=== PATIENT | female | born 1965 | race Hispanic/Latino ===

== ENCOUNTER 2019-02-22 16:23 | Observation (INO) | payer BC, OTHER ==
[~2019-02-22 16:23] MED LIST: ISOVUE-370 76%-LOCM 1 ML ONE
[2019-02-22 16:53] LABS: #Basophils 0.1 thou/uL (0.0-0.2); #Eosinphils 0.2 thou/uL (0.0-0.7); #Monocytes 1.1 thou/uL (0.11-0.59); %Basophils 0.3 % (0.0-1.0); %Eosinophils 1.3 % (0.0-10.0); %Lymphocytes 11.3 % (21.0-51.0); %Monocytes 6.2 % (0.0-10.0); %Neutrophils 80.8 % (42.0-75.0); Hemoglobin 13.6 g/dL (12.0-16.0); Mean Corpuscular HGB CONC 35.1 g/dL (32.0-36.0); Mean Corpuscular Hemoglobin 32.2 pg (27.0-31.0); Mean Corpuscular Volume 91.7 fL (78.0-98.0); Platelet Count 302 thou/uL (130-400); RBC Distribution Width 12.7 % (11.5-14.5); Red Blood Cell (RBC) Count 4.23 mill/uL (4.20-5.40); White Blood Cell (WBC) Count 17.3 thou/uL (4.8-10.8)
--- NOTE | 2019-02-22 17:03 | RAD ---
AP CHEST: 02/22/19 HISTORY: Chest pain. Lung abdalla are clear. No infiltrate or vascular congestion. Heart size is normal. IMPRESSION: No acute process. POS: TPC
[2019-02-22] MEDS ORDERED: Nitroglycerin 2% Ointment 1 INCH/1 GM Packet ONE (17:17)
[2019-02-22 17:19] LABS: ALT (SGPT) 34 U/L (8-55); AST (SGOT) 26 U/L (5-34); Alkaline Phosphatase 102 U/L (40-110); Anion Gap 12 mmol/L (10-20); BUN (Urea Nitrogen) 10 mg/dL (9.8-20.1); Bilirubin, Total 0.3 mg/dL (0.2-1.2); CK (CPK) 49 U/L (29-168); Calc. Creatinine Clearance 0 mL/min (70-130); Calcium 9.6 mg/dL (7.8-10.44); Carbon Dioxide 28 mmol/L (22-29); Chloride 102 mmol/L (98-107); Estimated GFR-MDRD 87; Globulin 2.3 g/dL (2.4-3.5); Glucose 120 mg/dL (70-105); Lipase 16 U/L (8-78); Potassium 3.3 mmol/L (3.5-5.1); Protein, Total 6.3 g/dL (6.0-8.3); Sodium 139 mmol/L (136-145)
[2019-02-22 17:45] LABS: Bilirubin Negative (Negative); Blood, Urine Negative (Negative); Clarity Clear (Clear); Glucose, Urine (Dipstick) Normal (Negative); Leukocyte Negative Leu/uL (Negative); Nitrite Negative (Negative); Protein, Urine (Dipstick) Negative (Neg-Trace); Urobilinogen Normal mg/dL (Less than 2)
--- NOTE | 2019-02-22 18:42 | CT ---
CT ANGIOGRAM THORAX WITH IV CONTRAST AND 3-D RECONSTRUCTIONS CLINICAL INDICATION: Chest pain COMPARISON: None FINDINGS: Pulmonary arteries: No filling defects are seen in the pulmonary arteries to suggest a pulmonary embo zach. Aorta: The aorta is normal in caliber without evidence of an aortic dissection. Lungs: Minimal dependent bilateral groundglass densities most likely related to volume loss. No conso lidation, pulmonary nodule, or pleural effusion is seen in the lungs bilaterally. Mediastinum: There is no evidence of lymphadenopathy. Thyroid gland: Suggestion of tiny subcentimeter nodule left lobe of thyroid gland which cannot be fur ther characterized on this study. Osseous structures: Minimal scattered degenerative changes are seen in the spine. Chest wall: No abnormality visualized. Upper abdomen: Within normal limits for phase of imaging. IMPRESSION: 1. No CT evidence of a pulmonary embolus. 2. Subcentimeter difficult to characterize left thyroid nodule.
[2019-02-22] MEDS ORDERED: Acetaminophen 650 MG Suppository PR PRN (20:08)
[2019-02-22] MEDS ORDERED: Ondansetron ODT 4 MG TAB PO PRN (20:08)
[2019-02-22] MEDS ORDERED: Acetaminophen 325 MG TAB PO PRN (20:08)
[2019-02-22] MEDS ORDERED: Ondansetron PF 4 MG/2 ML Vial IVP PRN (20:08)
[2019-02-22 20:35] LABS: Amphetamine Not Detected (NotDetected); Barbiturates Screen Not Detected (NotDetected); Benzodiazepine Screen Not Detected (NotDetected); Cocaine Metabolite Screen Not Detected (NotDetected); Medtox Control Line Valid? VALID (VALID); Medtox Reader # READER 1; Methadone Not Detected (NotDetected); Methamphetamine Not Detected (NotDetected); Opiate Screen Not Detected (NotDetected); Oxycodone Screen Not Detected (NotDetected); Phencyclidine (PCP) Not Detected (NotDetected); THC/Cannabinoid Screen Not Detected (NotDetected); Tricyclic Screen Detected (NotDetected)
[2019-02-22 20:48] LABS: Lactic Acid 1.6 mmol/L (0.5-2.2)
[2019-02-22 20:56] LABS: Troponin I Less than 0.010 ng/mL (< 0.028)
[2019-02-22 21:30] LABS: Magnesium 1.6 mg/dL (1.6-2.6)
[2019-02-22] MEDS ORDERED: Nicotine 7 MG PATCH TD SCH (22:00)
--- NOTE | 2019-02-22 22:02 | PDOC.HHP ---
Hospitalist HPI - History of Present Illness chest pain History of Present Illness: Ms. Rainey is a pleasant 53 year old woman presenting with chest pressure, substernal, 9/10 in severity, with pain down her left arm. She states she first felt unwell last night before going to bed, began feeling nauseated and vomitted twice. She was unable to get comfortable and reports having sweats. Nausea was relieved with Zofran. This morning she states she felt well and then once she was at work she began to feel nauseated again. She denies any vomiting but began to have a burning sensation in her chest following by a feeling of "bricks laying in the center of [her] chest". Denies any shortness of breath but felt that taking deep breaths would help to expand her chest. She reports having generalized body aches and fatigue. Reports a history of reactive airway disease, she does smoke a pack every 2 days and reports using inhalers as needed. She is on estrogen. ED Course: She had an EKG done showing sinus tachycardia, HR 102, with no ST or T wave changes. Labs done were notable for a WCC of 17.3, she had a potassium of 3.3. Initial troponin negative. LFTs and lipase normal. She had a CXR done showing no acute changes. Due to slightly elevated d-dimer of 0.44, a CTA was done which was negative for PE. There was a subcentimeter left thyroid nodule, too small to characterize, incidentally seen. UA done was normal. Hospitalist ROS - Review of Systems Constitutional: reports: sweats, malaise. denies: fever, chills, weakness, other Eyes: denies: pain, vision change, conjunctivae inflammation, eyelid inflammation, redness, other ENT: reports: other (dry mouth). denies: ear pain, ear discharge, nose pain, nose discharge, nose congestion, mouth pain, mouth swelling, throat pain, throat swelling Respiratory: reports: cough (at baseline, nonproductive). denies: dry, shortness of breath, hemoptysis, SOB with excertion, pleuritic pain, sputum, wheezing, other Cardiovascular: reports: chest pain. denies: palpitations, orthopnea, paroxysmal noc. dyspnea, edema, light headedness, other Gastrointestinal: reports: nausea, vomiting. denies: abdominal pain, diarrhea, constipation, melena, hematochezia, other Genitourinary: denies: dysuria, frequency, incontinence, hematuria, retention, other Musculoskeletal: denies: neck pain, shoulder pain, arm pain, back pain, hand pain, leg pain, foot pain, other Skin: denies: rash, lesions, veronica, bruising, other Neurological: denies: weakness, numbness, incoordination, change in speech, confusion, seizures, other Hospitalist History - Past Medical History Source: patient Cardiac: reports: no pertinent history Pulmonary: reports: asthma CERTIFIED HAND THERAPIST: reports: no pertinent history Gastrointestinal: reports: no pertinent history Heme/Onc: reports: no pertinent history Hepatobiliary: reports: no pertinent history Psych: reports: no pertinent history Musculoskeletal: reports: no pertinent history Rheumatologic: reports: no pertinent history Infectious Disease: reports: no pertinent history ENT: reports: no pertinent history Renal/: reports: no pertinent history Endocrine: reports: no pertinent history Dermatology: reports: no pertinent history - Past Surgical History Past Surgical History: reports: Appendectomy, Tubal Ligation - Family History Family History: reports: Other (CAD) - Social History Smoking Status: Current every day smoker Tobacco Type: cigarettes Alcohol: reports: Rare Drugs: reports: none Living Situation: With Family Activity level: independent ambulation - Exam General Appearance: NAD Eye: PERRL, anicteric sclera ENT: normocephalic atraumatic, no oropharyngeal lesions, moist mucosa Neck: supple, symmetric, no JVD, no thyromegaly Heart: RRR, no murmur, no gallops, no rubs, normal peripheral pulses Respiratory: CTAB, no wheezes, no rales, no ronchi, normal chest expansion, no tachypnea Gastrointestinal: soft, non-tender, non-distended, normal bowel sounds, no palpable masses Extremities: no cyanosis, no clubbing, no edema Skin: normal turgor, no lesions, no rashes Neurological: cranial nerve grossly intact, normal sensation to touch, no weakness, no focal deficits, no new deficit Musculoskeletal: normal tone, normal strength, no muscle wasting Psychiatric: normal affect, normal behavior, A&O x 3 Hospitalist Results - Labs Result Diagrams: 02/22/19 16:44 02/22/19 16:44 Lab results: WBC 17.3 thou/uL (4.8-10.8) H 02/22/19 16:44 Hgb 13.6 g/dL (12.0-16.0) 02/22/19 16:44 Hct 38.8 % (36.0-47.0) 02/22/19 16:44 MCV 91.7 fL (78.0-98.0) 02/22/19 16:44 Plt Count 302 thou/uL (130-400) 02/22/19 16:44 Neutrophils % 80.8 % (42.0-75.0) H 02/22/19 16:44 Sodium 139 mmol/L (136-145) 02/22/19 16:44 Potassium 3.3 mmol/L (3.5-5.1) L 02/22/19 16:44 Chloride 102 mmol/L (98-107) 02/22/19 16:44 Carbon Dioxide 28 mmol/L (22-29) 02/22/19 16:44 BUN 10 mg/dL (9.8-20.1) 02/22/19 16:44 Creatinine 0.71 mg/dL (0.6-1.1) 02/22/19 16:44 Glucose 120 mg/dL (70-105) H 02/22/19 16:44 Lactic Acid 1.6 mmol/L (0.5-2.2) 02/22/19 20:22 Calcium 9.6 mg/dL (7.8-10.44) 02/22/19 16:44 Total Bilirubin 0.3 mg/dL (0.2-1.2) 02/22/19 16:44 AST 26 U/L (5-34) 02/22/19 16:44 ALT 34 U/L (8-55) 02/22/19 16:44 Alkaline Phosphatase 102 U/L (40-110) 02/22/19 16:44 Creatine Kinase 45 U/L (29-168) 02/22/19 20:22 Troponin I Less than 0.010 ng/mL (< 0.028) 02/22/19 20:22 B-Natriuretic Peptide 12.6 pg/mL (0-100) 02/22/19 20:22 Serum Total Protein 6.3 g/dL (6.0-8.3) 02/22/19 16:44 Albumin 4.0 g/dL (3.5-5.0) 02/22/19 16:44 Lipase 16 U/L (8-78) 02/22/19 16:44 Urine Ketones Negative mg/dL (Negative) 02/22/19 17:18 Urine Blood Negative (Negative) 02/22/19 17:18 Urine Nitrite Negative (Negative) 02/22/19 17:18 Ur Leukocyte Esterase Negative Hussein/uL (Negative) 02/22/19 17:18 - Radiology Interpretation CT scan - chest Status: report reviewed by me Hospitalist H&P A/P - Problem (1) Chest pain Code(s): R07.9 - CHEST PAIN, UNSPECIFIED Status: Resolved (2) Leukocytosis Code(s): D72.829 - ELEVATED WHITE BLOOD CELL COUNT, UNSPECIFIED Status: Acute (3) Nausea & vomiting Code(s): R11.2 - NAUSEA WITH VOMITING, UNSPECIFIED Status: Acute (4) Hypokalemia Code(s): E87.6 - HYPOKALEMIA Status: Acute (5) Tobacco use Code(s): Z72.0 - TOBACCO USE Status: Chronic (6) Hx estrogen therapy Code(s): Z92.23 - PERSONAL HISTORY OF ESTROGEN THERAPY Status: Chronic - Plan Plan: Continue to trend troponins, add-on BNP. Stress test in AM. NPO at midnight. Urine drug screen. Replace potassium and monitor electrolytes. Add-on Mg+ to labs. CTA negative for PE. Hx of smoking, requesting nicotine patch. Duonebs ordered. Add-on lactic acid, procalcitonin to labs given leukocytosis. UA negative. CXR negative. No source for infection, possibly reactive. No indication for antibiotics at present. Admit to Obs/tele. CODE STATUS: FULL. SURROGATE DECISION MAKER: Bebeto Rainey, . Case discussed with attending who agrees with plan as above.
[2019-02-22] MEDS: Sodium Chloride 0.9% 1,000 ML IV SCH (22:19)
[2019-02-22] MEDS: Famotidine/PF 20 mg/2ml Vial SLOW IVP SCH (22:20)
[2019-02-22 22:59] VITALS: BMI 23.8
[2019-02-22] MEDS ORDERED: Potassium Chloride 20 MEQ TAB PO SCH (23:15)
[2019-02-22 23:49] LABS: Troponin I Less than 0.010 ng/mL (< 0.028)
[2019-02-23 05:40] LABS: #Basophils 0.1 thou/uL (0.0-0.2); #Eosinphils 0.2 thou/uL (0.0-0.7); %Basophils 0.6 % (0.0-1.0); %Eosinophils 2.1 % (0.0-10.0); %Lymphocytes 26.3 % (21.0-51.0); %Monocytes 8.8 % (0.0-10.0); %Neutrophils 62.2 % (42.0-75.0); Hemoglobin 12.9 g/dL (12.0-16.0); Mean Corpuscular HGB CONC 34.1 g/dL (32.0-36.0); Mean Corpuscular Hemoglobin 31.5 pg (27.0-31.0); Mean Corpuscular Volume 92.5 fL (78.0-98.0); Mean Platelet Volume 8.3 fL (7.4-10.4); Platelet Count 286 thou/uL (130-400); RBC Distribution Width 12.8 % (11.5-14.5); Red Blood Cell (RBC) Count 4.11 mill/uL (4.20-5.40); White Blood Cell (WBC) Count 11.3 thou/uL (4.8-10.8)
[2019-02-23 05:57] LABS: Anion Gap 11 mmol/L (10-20); BUN (Urea Nitrogen) 6 mg/dL (9.8-20.1); Calc. Creatinine Clearance 98 mL/min (70-130); Calcium 8.5 mg/dL (7.8-10.44); Carbon Dioxide 26 mmol/L (22-29); Chloride 107 mmol/L (98-107); Estimated GFR-MDRD Greater than 90; Glucose 92 mg/dL (70-105); Potassium 3.5 mmol/L (3.5-5.1); Sodium 140 mmol/L (136-145)
[2019-02-23] MEDS ORDERED: Magnesium 2 GM/50 ML 2 GM in Premix Bag 1 BAG IVPB SCH (07:30)
[2019-02-23] MEDS ORDERED: Potassium Chloride 20 MEQ TAB PO SCH (07:30)
[2019-02-23] MEDS: Famotidine/PF 20 mg/2ml Vial SLOW IVP SCH (11:07)
--- NOTE | 2019-02-23 11:21 | NM ---
EXAM: CARDIAC SPECT HISTORY: Chest pain TECHNIQUE: A myocardial perfusion scan was performed using the single isotope 1 day protocol with jose hnetium 99m sestamibi. [10 mCi] was injected intravenously for the rest exam followed by 30 mCi for the stress study. Pharmacologic stress with adenosine was monitored and interpreted by Dr. Carbone FINDINGS: Homogeneous tracer distribution is seen in the myocardial segments on stress and rest image s without fixed or reversible defects. Gated SPECT LVEF: 64% Wall motion exam: Normal IMPRESSION: Normal myocardial perfusion scan
[2019-02-23 12:06] VITALS: BP 98/57; TEMP 98.4
[2019-02-23] MEDS: Sodium Chloride 0.9% 1,000 ML IV SCH (13:53)
[2019-02-23] MEDS ORDERED: ADENOSINE 60 MG/20 ML VIAL ONE (18:18)
--- NOTE | 2019-02-24 04:31 | DIS ---
DATE OF ADMISSION: 02/22/2019 DATE OF DISCHARGE: 02/23/2019 PRIMARY CARE PHYSICIAN: Dr. Amie Jones. DISCHARGE DIAGNOSES: 1. Atypical chest pain. 2. Leukocytosis. 3. Hypokalemia. 4. Tobacco abuse disorder. 5. Nausea and vomiting. 6. Negative stress test. HOSPITAL COURSE: A 53-year-old female with past medical history significant for tobacco abuse disorder, anxiety, admitted with acute onset of substernal severe chest pain with radiation to the left arm associated with nausea and vomiting. The patient was found to be tachycardic with leukocytosis and further evaluation revealed hypokalemia and elevated D-dimer. Evaluation with CT angio of the chest was negative for PE. The patient was treated with analgesic with resolution of chest discomfort. Acute myocardial infarction was ruled out with serial troponin. The patient subsequently had a nuclear stress test which was negative for reversible ischemia. The patient was also found to have hypokalemia, which was treated with potassium supplementation with resolution. Magnesium also was found to be on the low side with serum level of 1.6, hence was supplemented with magnesium sulfate. The patient remained stable and was subsequently discharged home. She was advised to quit smoking. PHYSICAL EXAMINATION: VITAL SIGNS: Temperature 98.4, pulse 88, respiratory rate 16, SpO2 of 95% on room air, blood pressure is 98/57. GENERAL: Female, in no obvious distress. Afebrile. Anicteric. Acyanotic. HEENT: Normocephalic, atraumatic. Oral mucosa is moist. CARDIOVASCULAR: Regular rhythm and rate with normal heart sounds 1 and 2. RESPIRATORY: Fair air entry bilaterally with few transmitted breath sounds. No obvious crackle or rhonchi, or use of accessory muscles appreciated. GI: Full, soft, nontender, nondistended with normal bowel sounds. EXTREMITIES: Grossly normal looking, atraumatic with no edema or erythema. CLEARANCE CUTTER: Conscious, alert, oriented x3 with appropriate mental status. DISCHARGE CONDITION: Improved. DISCHARGE DISPOSITION: Home. DISCHARGE MEDICATIONS: 1. Amitriptyline 50 mg every other day. 2. Trazodone 50 mg every other day. 3. Zofran 4 mg q.6 p.r.n. for nausea. 4. Vitamin D units daily. 5. Estradiol 1 tablet p.o. daily. 6. Multivitamin with iron and folic acid one tablet daily. 7. Magnesium 400 mg p.o. daily. 8. Potassium chloride 20 mEq p.o. daily. FOLLOWUP: With PCP in 2 to 3 weeks. Job ID: [id number]
== END 2019-02-23 14:53 | disposition home or self-care (01) ==
LOC: ERS 16:23 → 2SW 20:11
PROVIDERS: ADMIT Internal Medicine; ATTEND Internal Medicine
DX: R07.89 Other chest pain (principal); D72.829 Elevated white blood cell count, unspecified; E87.6 Hypokalemia; F17.210 Nicotine dependence, cigarettes, uncomplicated; J45.909 Unspecified asthma, uncomplicated; E04.1 Nontoxic single thyroid nodule; Z79.818 Long term (current) use of other agents affecting estrogen receptors and estrogen levels; Z79.899 Other long term (current) drug therapy
CPT/HCPCS: 36415; 71045; 71275; 78452; 80048; 80053; 80306; 81003; 82550; 83605; 83690; 83735; 83880; 84145; 84484; 85025; 85379; 93005; 93017; 94760; 96360; 96361; 96365; 96366; 96375; A9500; G0378; J0153; J3475; Q9966; S0028